=== PATIENT | female | born 1980 | race Caucasian/White ===

== ENCOUNTER 2018-08-29 04:01 | Emergency (ER) | payer SELFPAY ==
[~2018-08-29] VITALS: Ht 157.5 cm; Wt 81.8 kg
[2018-08-29] MEDS ORDERED: TETRACAINE 1% INJ ONE (05:00)
[2018-08-29] MEDS ORDERED: FLUORESCEIN SODIUM 1 MG STRIP ONE (05:02)
[2018-08-29] MEDS ORDERED: TETRACAINE HCL/PF 0.5% 4 ML OPHTHALMIC SOLUTION OS ONE (05:15)
[2018-08-29 05:37] VITALS: BP 141/87
== END 2018-08-29 05:39 | disposition home or self-care (01) ==
LOC: EMS 04:07
DX: S05.02XA Injury of conjunctiva and corneal abrasion without foreign body, left eye, initial encounter (principal); F17.210 Nicotine dependence, cigarettes, uncomplicated; W22.8XXA Striking against or struck by other objects, initial encounter; Y93.89 Activity, other specified; Y92.89 Other specified places as the place of occurrence of the external cause; Y99.8 Other external cause status
CPT/HCPCS: J3490

== ENCOUNTER 2024-01-19 22:05 | Inpatient (IN) | payer MEDICAID ==
[~2024-01-19] VITALS: Ht 157.5 cm; Wt 93.0 kg
[~2024-01-19 22:05] MED LIST: PANT-31 PO; POLY17PO62 PO
[2024-01-19] MEDS: SODIUM CHLORIDE 0.9% 1,000 ML IV ONE (22:30)
[2024-01-19] MEDS ORDERED: VASOPRESSIN 40 UNITS in DEXTROSE 5%-WATER 98 ML IV PRN (22:30)
[2024-01-19] MEDS: PANTOPRAZOLE SODIUM 40 MG/VIAL IVP ONE (22:31)
[2024-01-19] MEDS: PANTOPRAZOLE SODIUM 80 MG in SODIUM CHLORIDE 0.9% 100 ML IV SCH (22:41)
[2024-01-19 22:42] LABS: EOSINOPHILS % (AUTO) 0.1 % (1.0-6.0); MONOCYTES # (AUTO) 0.3 K/uL (0.1-1.0); NEUTROPHILS # (AUTO) 4.8 K/uL (1.8-7.7); WHITE BLOOD COUNT (AUTO) 6.4 K/uL (4.5-11.0)
[2024-01-19 22:45] LABS: BASOPHILS % (AUTO) 0.2 % (0.0-2.0); LYMPHOCYTES # (AUTO) 1.2 K/uL (1.0-4.8); LYMPHOCYTES % (AUTO) 19.2 % (22.0-44.0); MEAN CORPUSCULAR HEMOGLOBIN 16.7 pg (26.0-34.0); MEAN CORPUSCULAR HGB CONC 28.7 G/dL (31.0-37.0); MEAN CORPUSCULAR VOLUME 58 fL (80-100); MONOCYTES % (AUTO) 5.3 % (2.0-9.0); NEUTROPHILS % (AUTO) 75.2 % (40.0-70.0); PLATELET COUNT (AUTO) 405 K/uL (150-450); RED BLOOD CELL COUNT(AUTO) 3.46 MIL/uL (4.00-5.20); RED CELL DISTRIBUTION WIDTH 18.5 % (11.5-14.5)
[2024-01-19 22:52] LABS: ANION GAP 13 mmol/L (8-16); CALCIUM, TOTAL 8.2 mg/dL (8.8-10.5); CARBON DIOXIDE 23 mmol/L (22-29); CHLORIDE 99 mmol/L (98-107); CREATININE 1.22 mg/dL (0.60-1.30); GLOMERULAR FILTR. RATE CALC 48 mL/min (>60); GLUCOSE,RANDOM 141 mg/dL (70-110); POTASSIUM 3.8 mmol/L (3.5-5.1); SODIUM SERUM 135 mmol/L (136-145); UREA NITROGEN, BLOOD 14 mg/dL (7-18)
[2024-01-19 22:56] LABS: HEMATOCRIT 20.2 % (36-46); HEMOGLOBIN 5.8 g/dL (12.0-16.0)
[2024-01-19] MEDS ORDERED: PANTOPRAZOLE SODIUM 80 MG in SODIUM CHLORIDE 0.9% 100 ML IV SCH (23:00)
[2024-01-19 23:03] LABS: ALANINE AMINOTRANSFERASE 13 U/L (12-78); ALKALINE PHOSPHATASE 94 U/L (46-116); ASPARTATE AMINOTRANSFERASE 15 U/L (15-37); BILIRUBIN,TOTAL 0.6 mg/dL (0.1-1.0); HCG,QUANTITATIVE < 1 mIU/mL (0-6); LIPASE 34 U/L (16-77); RBC MORPHOLOGY COMMENT ABNORMAL RBC MORPH; TOTAL PROTEIN, SERUM 7.2 g/dL (6.4-8.2)
[2024-01-19] MEDS ORDERED: ONDANSETRON HCL 4 MG/2 ML VIAL IVP PRN (23:30)
[2024-01-19] MEDS ORDERED: MORPHINE SULFATE 2 MG/ML SYRINGE IVP PRN (23:30)
[2024-01-19] MEDS ORDERED: HYDROCODONE/ACETAMINOPHEN 5-325 MG TABLET PO PRN (23:30)
[2024-01-19] MEDS ORDERED: MAGNESIUM HYDROXIDE SUSPENSION 30 ML UDCUP PO PRN (23:30)
[2024-01-19] MEDS ORDERED: BISACODYL 10 MG RECTAL RECTAL SUPPOSITORY PR PRN (23:30)
[2024-01-19] MEDS: OCTREOTIDE ACETATE 100 MCG/ML VIAL IVP ONE (23:31)
[2024-01-19] MEDS ORDERED: SODIUM CHLORIDE 0.9% 250 ML IV ONE (23:48)
[2024-01-20] VITALS (17 sets, daily range): BP systolic 97–135; BP diastolic 38–83; PULSE 68–95; RESP 15–19; TEMP 97.9–100.2; O2SAT 97–99
[2024-01-20] MEDS: ACETAMINOPHEN 325 MG TABLET PO PRN (00:17)
[2024-01-20] MEDS: PANTOPRAZOLE SODIUM 80 MG in SODIUM CHLORIDE 0.9% 100 ML IV SCH (06:20)
[2024-01-20 06:54] LABS: ANION GAP 10 mmol/L (8-16); CALCIUM, TOTAL 7.7 mg/dL (8.8-10.5); CARBON DIOXIDE 24 mmol/L (22-29); CHLORIDE 103 mmol/L (98-107); CREATININE 0.95 mg/dL (0.60-1.30); GLOMERULAR FILTR. RATE CALC > 60 mL/min (>60); GLUCOSE,RANDOM 99 mg/dL (70-110); POTASSIUM 4.4 mmol/L (3.5-5.1); SODIUM SERUM 136 mmol/L (136-145); UREA NITROGEN, BLOOD 10 mg/dL (7-18)
[2024-01-20 06:57] LABS: BASOPHILS % (AUTO) 0.5 % (0.0-2.0); EOSINOPHILS % (AUTO) 0.6 % (1.0-6.0); HEMATOCRIT 21.8 % (36-46); LYMPHOCYTES # (AUTO) 1.2 K/uL (1.0-4.8); LYMPHOCYTES % (AUTO) 19.4 % (22.0-44.0); MEAN CORPUSCULAR HEMOGLOBIN 18.9 pg (26.0-34.0); MEAN CORPUSCULAR VOLUME 63 fL (80-100); MONOCYTES # (AUTO) 0.4 K/uL (0.1-1.0); MONOCYTES % (AUTO) 7.3 % (2.0-9.0); NEUTROPHILS # (AUTO) 4.3 K/uL (1.8-7.7); NEUTROPHILS % (AUTO) 72.2 % (40.0-70.0); PLATELET COUNT (AUTO) 348 K/uL (150-450); RED BLOOD CELL COUNT(AUTO) 3.45 MIL/uL (4.00-5.20); RED CELL DISTRIBUTION WIDTH 22.9 % (11.5-14.5)
[2024-01-20 07:04] LABS: HEMOGLOBIN 6.5 g/dL (12.0-16.0)
[2024-01-20] MEDS: DOCUSATE SODIUM 100 MG CAPSULE PO SCH (08:16)
[2024-01-20] MEDS ORDERED: PANTOPRAZOLE SODIUM 40 MG DR TABLET PO SCH (09:00)
[2024-01-20 10:57] LABS: RBC MORPHOLOGY COMMENT ABNORMAL RBC MORPH
[2024-01-20] MEDS: NICOTINE 14 MG/24 HOUR PATCH TD SCH (17:25)
[2024-01-20] MEDS: ZOLPIDEM TARTRATE 5 MG TABLET PO PRN (22:34)
[2024-01-21] VITALS (10 sets, daily range): BP systolic 126–142; BP diastolic 53–90; PULSE 64–78; RESP 18–20; TEMP 97.9–98.4; O2SAT 97–100
[2024-01-21] MEDS ORDERED: SODIUM CHLORIDE 0.9% 1,000 ML ONE (06:22)
[2024-01-21] MEDS: SODIUM CHLORIDE 0.9% 1,000 ML IV ONE (06:40)
[2024-01-21 06:54] LABS: BASOPHILS % (AUTO) 0.4 % (0.0-2.0); HEMATOCRIT 25.8 % (36-46); HEMOGLOBIN 8.1 g/dL (12.0-16.0); LYMPHOCYTES # (AUTO) 1.4 K/uL (1.0-4.8); LYMPHOCYTES % (AUTO) 27.3 % (22.0-44.0); MEAN CORPUSCULAR HGB CONC 31.5 G/dL (31.0-37.0); MEAN CORPUSCULAR VOLUME 67 fL (80-100); MONOCYTES # (AUTO) 0.5 K/uL (0.1-1.0); MONOCYTES % (AUTO) 10.2 % (2.0-9.0); NEUTROPHILS # (AUTO) 3.1 K/uL (1.8-7.7); NEUTROPHILS % (AUTO) 59.1 % (40.0-70.0); PLATELET COUNT (AUTO) 328 K/uL (150-450); RED BLOOD CELL COUNT(AUTO) 3.88 MIL/uL (4.00-5.20); WHITE BLOOD COUNT (AUTO) 5.3 K/uL (4.5-11.0)
[2024-01-21 07:55] LABS: RBC MORPHOLOGY COMMENT ABNORMAL RBC MORPH
[2024-01-21] MEDS ORDERED: LIDOCAINE/PF 2% 5 ML SYRINGE IVP ONE (12:00)
[2024-01-21] MEDS ORDERED: PROPOFOL 1% 20 ML VIAL IVP ONE (12:00)
[2024-01-21 12:09] LABS: BASOPHILS % (AUTO) 0.4 % (0.0-2.0); EOSINOPHILS % (AUTO) 3.5 % (1.0-6.0); HEMATOCRIT 25.6 % (36-46); HEMOGLOBIN 8.2 g/dL (12.0-16.0); LYMPHOCYTES # (AUTO) 1.4 K/uL (1.0-4.8); LYMPHOCYTES % (AUTO) 23.8 % (22.0-44.0); MEAN CORPUSCULAR HEMOGLOBIN 21.3 pg (26.0-34.0); MEAN CORPUSCULAR HGB CONC 31.9 G/dL (31.0-37.0); MEAN CORPUSCULAR VOLUME 67 fL (80-100); MONOCYTES # (AUTO) 0.6 K/uL (0.1-1.0); MONOCYTES % (AUTO) 10.6 % (2.0-9.0); NEUTROPHILS # (AUTO) 3.5 K/uL (1.8-7.7); NEUTROPHILS % (AUTO) 61.7 % (40.0-70.0); PLATELET COUNT (AUTO) 322 K/uL (150-450); RED BLOOD CELL COUNT(AUTO) 3.83 MIL/uL (4.00-5.20); RED CELL DISTRIBUTION WIDTH 27.7 % (11.5-14.5); WHITE BLOOD COUNT (AUTO) 5.7 K/uL (4.5-11.0)
[2024-01-21 12:59] LABS: RBC MORPHOLOGY COMMENT ABNORMAL RBC MORPH
[2024-01-21 20:05] LABS: ANION GAP 11 mmol/L (8-16); CALCIUM, TOTAL 7.9 mg/dL (8.8-10.5); CARBON DIOXIDE 22 mmol/L (22-29); CHLORIDE 104 mmol/L (98-107); CREATININE 0.87 mg/dL (0.60-1.30); GLOMERULAR FILTR. RATE CALC > 60 mL/min (>60); GLUCOSE,RANDOM 130 mg/dL (70-110); POTASSIUM 3.6 mmol/L (3.5-5.1); SODIUM SERUM 137 mmol/L (136-145); UREA NITROGEN, BLOOD 14 mg/dL (7-18)
[2024-01-21] MEDS: RINGERS SOLUTION,LACTATED 500 ML IV ONE (20:29)
[2024-01-21] MEDS: PANTOPRAZOLE SODIUM 40 MG/VIAL IVP SCH (20:30)
[2024-01-21 23:23] LABS: BASOPHILS % (AUTO) 0.3 % (0.0-2.0); EOSINOPHILS % (AUTO) 3.3 % (1.0-6.0); HEMATOCRIT 25.2 % (36-46); LYMPHOCYTES # (AUTO) 1.9 K/uL (1.0-4.8); LYMPHOCYTES % (AUTO) 28.2 % (22.0-44.0); MEAN CORPUSCULAR HGB CONC 31.5 G/dL (31.0-37.0); MEAN CORPUSCULAR VOLUME 67 fL (80-100); MONOCYTES # (AUTO) 0.6 K/uL (0.1-1.0); MONOCYTES % (AUTO) 9.5 % (2.0-9.0); NEUTROPHILS # (AUTO) 3.9 K/uL (1.8-7.7); NEUTROPHILS % (AUTO) 58.7 % (40.0-70.0); PLATELET COUNT (AUTO) 329 K/uL (150-450); RED CELL DISTRIBUTION WIDTH 27.5 % (11.5-14.5); WHITE BLOOD COUNT (AUTO) 6.6 K/uL (4.5-11.0)
[2024-01-21 23:57] LABS: RBC MORPHOLOGY COMMENT DIMORPHIC RBC
[2024-01-22 04:50] VITALS: BP 126/72; PULSE 69; RESP 18; TEMP 98.3; O2SAT 97
[2024-01-22 06:08] LABS: BASOPHILS % (AUTO) 0.3 % (0.0-2.0); EOSINOPHILS % (AUTO) 3.5 % (1.0-6.0); HEMATOCRIT 25.3 % (36-46); HEMOGLOBIN 8.1 g/dL (12.0-16.0); LYMPHOCYTES # (AUTO) 1.8 K/uL (1.0-4.8); LYMPHOCYTES % (AUTO) 26.9 % (22.0-44.0); MEAN CORPUSCULAR HEMOGLOBIN 21.3 pg (26.0-34.0); MEAN CORPUSCULAR VOLUME 67 fL (80-100); MONOCYTES # (AUTO) 0.5 K/uL (0.1-1.0); NEUTROPHILS # (AUTO) 4.1 K/uL (1.8-7.7); NEUTROPHILS % (AUTO) 61.3 % (40.0-70.0); PLATELET COUNT (AUTO) 332 K/uL (150-450); WHITE BLOOD COUNT (AUTO) 6.8 K/uL (4.5-11.0)
[2024-01-22 07:29] VITALS: BP 121/68; PULSE 66; RESP 18; TEMP 97.7; O2SAT 97
[2024-01-22 09:00] VITALS: BP 129/75; PULSE 68
[2024-01-22 09:05] VITALS: BP 144/72; PULSE 76
[2024-01-22 09:10] VITALS: BP 147/88; PULSE 82
[2024-01-22] MEDS ORDERED: [UNRECOGNIZED DRUG - CODE] PO (10:24)
[2024-01-22] MEDS ORDERED: PANT-31 PO (10:25)
== END 2024-01-22 12:20 | disposition home or self-care (01) | DRG 241 ==
LOC: EMS 22:05 → EDH 23:47 → 5N 01-20 08:45
PROVIDERS: ADMIT Internal Medicine; ATTEND Internal Medicine
PROC: 30233N1 Transfusion of Nonautologous Red Blood Cells into Peripheral Vein, Percutaneous Approach (ICD-10-PCS; principal; 2024-01-19)
PROC: 0DJ08ZZ Inspection of Upper Intestinal Tract, Via Natural or Artificial Opening Endoscopic (ICD-10-PCS; 2024-01-21)
DX: K29.71 Gastritis, unspecified, with bleeding (principal); N17.0 Acute kidney failure with tubular necrosis; R57.8 Other shock; E87.1 Hypo-osmolality and hyponatremia; D50.9 Iron deficiency anemia, unspecified; E11.65 Type 2 diabetes mellitus with hyperglycemia; E66.9 Obesity, unspecified; K76.0 Fatty (change of) liver, not elsewhere classified; I10 Essential (primary) hypertension; K44.9 Diaphragmatic hernia without obstruction or gangrene; K92.1 Melena; K40.20 Bilateral inguinal hernia, without obstruction or gangrene, not specified as recurrent; K42.9 Umbilical hernia without obstruction or gangrene; Z87.11 Personal history of peptic ulcer disease; Z87.891 Personal history of nicotine dependence; Z68.37 Body mass index [BMI] 37.0-37.9, adult
CPT/HCPCS: 74176; 76705; 80048; 80076; 82271; 83690; 84702; 85025; 86850; 86900; 86901; 86923; 99285; C9113; G0378; J2354; J2405; J2704; J3490; J7030; J7050; J7060; J7120; P9016

== ENCOUNTER 2024-05-26 22:06 | Emergency (ER) | payer MEDICAID ==
[~2024-05-26] VITALS: Ht 157.5 cm; Wt 90.9 kg
[~2024-05-26 22:06] MED LIST changes: +[UNRECOGNIZED DRUG - CODE] PO
[2024-05-26 22:15] VITALS: TEMP 98.3
[2024-05-26 23:18] LABS: COVID AG,FIA SOURCE NASAL SWAB
[2024-05-26 23:39] LABS: SARS-COV2 (COVID) ANTIGEN,FIA Negative (Negative)
[2024-05-26 23:39] LABS: BASOPHILS % (AUTO) 1.6 % (0.0-2.0); EOSINOPHILS % (AUTO) 0.7 % (1.0-6.0); HEMATOCRIT 34.7 % (36-46); HEMOGLOBIN 10.4 g/dL (12.0-16.0); LYMPHOCYTES # (AUTO) 0.6 K/uL (1.0-4.8); LYMPHOCYTES % (AUTO) 6.1 % (22.0-44.0); MEAN CORPUSCULAR HEMOGLOBIN 18.8 pg (26.0-34.0); MEAN CORPUSCULAR HGB CONC 29.9 G/dL (31.0-37.0); MEAN CORPUSCULAR VOLUME 63 fL (80-100); MONOCYTES # (AUTO) 0.5 K/uL (0.1-1.0); NEUTROPHILS # (AUTO) 8.5 K/uL (1.8-7.7); PLATELET COUNT (AUTO) 583 K/uL (150-450); RED BLOOD CELL COUNT(AUTO) 5.52 MIL/uL (4.00-5.20); RED CELL DISTRIBUTION WIDTH 19.1 % (11.5-14.5); WHITE BLOOD COUNT (AUTO) 9.8 K/uL (4.5-11.0)
[2024-05-26 23:40] LABS: INFLUENZA TYPE A NEGATIVE FOR TYPE A (NEGATIVE); INFLUENZA TYPE B NEGATIVE FOR TYPE B (NEGATIVE)
[2024-05-26 23:45] LABS: ANION GAP 9 mmol/L (8-16); CALCIUM, TOTAL 8.3 mg/dL (8.8-10.5); CARBON DIOXIDE 26 mmol/L (22-29); CHLORIDE 100 mmol/L (98-107); CREATININE 0.84 mg/dL (0.60-1.30); GLOMERULAR FILTR. RATE CALC > 60 mL/min (>60); GLUCOSE,RANDOM 106 mg/dL (70-110); POTASSIUM 4.1 mmol/L (3.5-5.1); SODIUM SERUM 135 mmol/L (136-145); UREA NITROGEN, BLOOD 13 mg/dL (7-18)
[2024-05-26 23:46] LABS: NEUTROPHILS % (AUTO) 86.6 % (40.0-70.0)
[2024-05-26 23:51] LABS: APPEARANCE,URINE HAZY (CLEAR); BILIRUBIN,URINE NEGATIVE (NEGATIVE); COLOR,URINE YELLOW (YELLOW); GLUCOSE, URINE (UA) NEGATIVE (NEGATIVE); KETONES,URINE NEGATIVE (NEGATIVE); LEUKOCYTE ESTERASE ,URINE NEGATIVE (NEGATIVE); NITRATE,URINE NEGATIVE (NEGATIVE); OCCULT BLOOD,URINE NEGATIVE (NEGATIVE); PH,URINE 6.5 (5.0-8.0); PROTEIN,URINE TRACE mg/dL (NEGATIVE); SPECIFIC GRAVITIY, URINE 1.031 (1.003-1.030); UROBILINOGEN,URINE <=1.0 mg/dL (<=1.0)
[2024-05-26 23:56] LABS: ALANINE AMINOTRANSFERASE 25 U/L (12-78); ALBUMIN 3.3 g/dL (3.4-5.0); ALKALINE PHOSPHATASE 108 U/L (46-116); ASPARTATE AMINOTRANSFERASE 19 U/L (15-37); HCG,QUANTITATIVE < 1 mIU/mL (0-6); LIPASE 26 U/L (16-77); TOTAL PROTEIN, SERUM 7.5 g/dL (6.4-8.2)
[2024-05-27] MEDS: FAMOTIDINE 20 MG/2 ML VIAL IVP ONE (00:35)
[2024-05-27] MEDS: SODIUM CHLORIDE 0.9% 1,000 ML IV ONE (00:35)
[2024-05-27] MEDS: ONDANSETRON HCL 4 MG/2 ML VIAL IVP ONE (00:35)
[2024-05-27 01:01] VITALS: BP 158/97; PULSE 77; RESP 18; O2SAT 98
[2024-05-27] MEDS ORDERED: ONDA-104 PO (01:20)
[2024-05-27] MEDS ORDERED: PANT-31 PO (01:20)
[2024-05-27 04:50] LABS: RBC MORPHOLOGY COMMENT ABNORMAL RBC MORPH
== END 2024-05-27 02:31 | disposition home or self-care (01) ==
LOC: EMS 22:07
DX: K52.9 Noninfective gastroenteritis and colitis, unspecified (principal); F12.90 Cannabis use, unspecified, uncomplicated; F17.210 Nicotine dependence, cigarettes, uncomplicated; K76.0 Fatty (change of) liver, not elsewhere classified; Z79.899 Other long term (current) drug therapy; Z87.11 Personal history of peptic ulcer disease; Z20.822 Contact with and (suspected) exposure to COVID-19
CPT/HCPCS: 99284; 87426; 80048; 80076; 81003; 83690; 84702; 85025; 87804; 36415; 96374; 96361; 96375; J3490; J2405; J7030

== ENCOUNTER 2025-01-31 01:45 | Emergency (ER) | payer MEDICAID ==
[~2025-01-31] VITALS: Ht 157.5 cm; Wt 90.9 kg
[~2025-01-31 01:45] MED LIST changes: +ONDA-104 PO
[2025-01-31 01:49] VITALS: TEMP 98.4
[2025-01-31 02:01] LABS: COVID AG,FIA SOURCE NASAL SWAB
[2025-01-31 02:07] LABS: INFLUENZA TYPE A NEGATIVE FOR TYPE A (NEGATIVE); INFLUENZA TYPE B NEGATIVE FOR TYPE B (NEGATIVE); SARS-COV2 (COVID) ANTIGEN,FIA Negative (Negative)
[2025-01-31] MEDS ORDERED: AMOX-457 PO (02:42)
[2025-01-31] MEDS: KETOROLAC TROMETHAMINE 30 MG/ML VIAL IM ONE (02:49)
[2025-01-31 02:55] VITALS: BP 164/79; PULSE 84; RESP 22; O2SAT 96
== END 2025-01-31 03:05 | disposition home or self-care (01) ==
LOC: EMS 01:46
DX: K02.9 Dental caries, unspecified (principal); K08.89 Other specified disorders of teeth and supporting structures; J18.0 Bronchopneumonia, unspecified organism; E11.9 Type 2 diabetes mellitus without complications; I10 Essential (primary) hypertension; K76.0 Fatty (change of) liver, not elsewhere classified; F17.210 Nicotine dependence, cigarettes, uncomplicated; Z79.899 Other long term (current) drug therapy; Z20.822 Contact with and (suspected) exposure to COVID-19
CPT/HCPCS: 99284; 71045; 87426; 82962; 87804; 96372; J1885